=== PATIENT | female | born 2000 | race Caucasian/White ===

== ENCOUNTER 2019-05-07 21:08 | Emergency (ER) | payer OTHER ==
[~2019-05-07] VITALS: Ht 180.3 cm; Wt 70.3 kg
[2019-05-07] MEDS ORDERED: ZOFRAN IV STA (22:02)
[2019-05-07] MEDS ORDERED: MORPHINE SULFATE IV STA (22:02)
--- NOTE | 2019-05-07 22:02 | ER.PDOC ---
General Chief Complaint: Requesting Medical Care Stated Complaint: R SIDE PAIN Time seen by MD: 21:50 Source: patient Exam Limitations: no limitations History of Present Illness Initial Comments Acute onset of R flank pain rad to R groin 3 days. Urinary frequency. No dysuria. No fever or nausea. Timing/Duration: other (3 days) Severity/Quality: moderate Radiation: RLQ Associated Symptoms: other (urinary frequency) Exacerbated by: nothing Relieved By: nothing Allergies: Coded Allergies: No Known Allergies (Unverified , 05/07/19) Vital Signs First Vital Signs Date Time Temp Pulse Resp B/P (MAP) Pulse Ox O2 Delivery O2 Flow Rate FiO2 05/07/19 22:01 98.2 144 18 05/07/19 22:01 99 Room Air Last Vital Signs Date Time Temp Pulse Resp B/P (MAP) Pulse Ox O2 Delivery O2 Flow Rate FiO2 05/07/19 22:01 98.2 05/07/19 22:01 144 18 99 Room Air Constitutional: no symptoms reported EENTM: no symptoms reported Respiratory: no symptoms reported Cardiovascular: no symptoms reported Gastrointestinal: no symptoms reported Genitourinary: frequency, flank pain Musculoskeletal: no symptoms reported Skin: no symptoms reported Psychiatric/Neurological: no symptoms reported Physical Exam General Appearance: WD/WN, Mild Distress HEENT: PERRL/EOMI, Normal ENT Inspection, TMs Normal, Pharynx Normal Neck: Non-Tender, Full Range of Motion, Supple, Normal Inspection Respiratory: chest non-tender, lungs clear, normal breath sounds, no respiratory distress, no accessory muscle use Cardiovascular: Normal Peripheral Pulses, Regular Rate, Rhythm, No Edema, No Gallop, No JVD, No Murmur Gastrointestinal: Normal Bowel Sounds, Non Tender, Soft Back: Normal Inspection, No Vertebral Tenderness, CVA Tenderness (R) Extremities: Normal Range of Motion, Non-Tender, Normal Inspection, No Pedal Edema, No Calf Tenderness, Normal Capillary Refill, Pelvis Stable 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, No Motor/Sensory Deficits, Alert, Normal Mood/Affect, Oriented x 3 Skin: Normal Color, Warm/Dry Lymphatic: No Adenopathy Results/Orders Results/Orders Orders - MADI JOHNSON MD Start Iv (05/07/19 22:02) 0.9 % Sodium Chloride (Ns 1000ml) (05/07/19 22:30) Morphine Sulfate (Morphine Sulfate) (05/07/19 22:02) Ondansetron Hcl (Zofran) (05/07/19 22:02) Cbc With Auto Diff (05/07/19 22:02) Basic Metabolic Panel (05/07/19 22:02) Urinalysis (05/07/19 22:02) 0.9 % Sodium Chloride (Ns 1000ml) (05/07/19 22:10) Ondansetron Hcl (Zofran) (05/07/19 22:10) Urine Culture (05/07/19 21:35) Ceftriaxone Sodium (Rocephin) (05/07/19 23:07) Vital Signs Date Time Temp Pulse Resp B/P (MAP) Pulse Ox O2 Delivery O2 Flow Rate FiO2 05/07/19 22:01 98.2 05/07/19 22:01 98.2 144 18 99 Room Air 05/07/19 22:01 98.2 144 18 Administered Medications Medications (Trade) Dose Ordered Sig/Kylie Route PRN Reason Start Time Stop Time Status Last Admin Dose Admin Morphine Sulfate (Morphine Sulfate) 4 mg OT STAT IV 05/07/19 22:02 05/07/19 22:05 DC 05/07/19 22:31 4 MG Ondansetron HCl (Zofran) 4 mg STAT STAT IV 05/07/19 22:02 05/07/19 22:05 DC 05/07/19 22:31 4 MG Sodium Chloride 0 ml @ 0 mls/hr OT IV 05/07/19 22:30 06/06/19 22:29 05/07/19 22:13 1,200 MLS/HR Laboratory Tests Test 05/07/19 21:35 05/07/19 21:52 Urine Collection Type VOID Urine Color YELLOW (YELLOW) Urine Appearance CLOUDY (CLEAR) H Urine Bilirubin NEGATIVE MG/DL (NEGATIVE) Urine Ketones NEGATIVE (NEGATIVE) Urine Specific [place] 1.010 (1.005-1.035) Urine pH 7 (5.0-6.0) Urine Protein 30 mg/dL (NEGATIVE) H Urine Urobilinogen NORMAL (NEGATIVE) Urine Nitrate NEGATIVE (NEGATIVE) Urine Leukocyte Esterase 100/ul 1+ (NEGATIVE) Urine Blood 150 3+ (NEGATIVE) H Urine RBC 5-10 RBC/HPF (NONE SEEN) H Urine WBC TNTC WBC/HPF (0-2) H Urine Squamous Epithelial Cells MANY #/HPF (FEW) Urine Bacteria RARE (NONE SEEN) Urine Glucose NORMAL (NEGATIVE) White Blood Count 11.7 10^3/uL (4.5-12.5) Red Blood Count 4.79 10^6/uL (4.00-5.20) Hemoglobin 14.2 g/dL (12.4-14.8) Hematocrit 41.8 % (36.0-46.0) Mean Corpuscular Volume 87.3 fL (78-100) Mean Corpuscular Hemoglobin 29.6 pg (26-34) Mean Corpuscular Hemoglobin Concent 34.0 g/dL (33-37) Red Cell Distribution Width 12.2 % (11.5-14.5) Platelet Count 371 10^3/uL (150-400) Mean Platelet Volume 10.1 fL (7.8-11.0) Neutrophils (%) (Auto) 66.8 % (41.0-85.0) Lymphocytes (%) (Auto) 21.6 % (24.0-44.0) L Monocytes (%) (Auto) 7.9 % (5.0-12.0) Neutrophils # (Auto) 7.8 10^3/uL (1.8-8.0) Lymphocytes # (Auto) 2.5 10^3/uL (1.2-5.2) Monocytes # (Auto) 0.9 10^3/uL (0.0-0.4) H Absolute Immature Granulocyte (auto 0.03 10^3 u/L (0-2) Immature Granulocytes % 0.30 % (0.00-0.50) Eosinophils % 2.8 % (0.0-5.0) Basophils % 0.6 % (0.0-0.2) H Basophils # 0.1 10^3/uL (0.0-0.1) Eosinophil Count 0.3 10^3/uL (0.0-0.2) H Sodium Level 141 mmol/L (132-145) Potassium Level 3.8 mmol/L (3.6-5.2) Chloride Level 104.0 mmol/L (96-109) Carbon Dioxide Level 25.6 mmol/L (20.0-32) Glucose Level 92 mg/dL (70-110) Blood Urea Nitrogen 15 mg/dL (7-18) Creatinine 0.88 mg/dL (0.59-1.40) Calcium Level 10.0 mg/dL (8.4-10.5) Anion Gap 15.2 Estimated GFR () 100.2 (>/=60) BUN/Creatinine Ratio 17.0 Course Vitals & review Data Vital Sign - Last 24 Hours 05/07/19 05/07/19 05/07/19 22:01 22:01 22:01 Temp 98.2 98.2 98.2 Pulse 144 144 Resp 18 18 Pulse Ox 99 O2 Delivery Room Air Laboratory Tests Test 05/07/19 21:35 05/07/19 21:52 Urine Collection Type VOID Urine Color YELLOW Urine Appearance CLOUDY Urine Bilirubin NEGATIVE MG/DL Urine Ketones NEGATIVE Urine Specific [place] 1.010 Urine pH 7 Urine Protein 30 mg/dL Urine Urobilinogen NORMAL Urine Nitrate NEGATIVE Urine Leukocyte Esterase 100/ul 1+ Urine Blood 150 3+ Urine RBC 5-10 RBC/HPF Urine WBC TNTC WBC/HPF Urine Squamous Epithelial Cells MANY #/HPF Urine Bacteria RARE Urine Glucose NORMAL White Blood Count 11.7 10^3/uL Red Blood Count 4.79 10^6/uL Hemoglobin 14.2 g/dL Hematocrit 41.8 % Mean Corpuscular Volume 87.3 fL Mean Corpuscular Hemoglobin 29.6 pg Mean Corpuscular Hemoglobin Concent 34.0 g/dL Red Cell Distribution Width 12.2 % Platelet Count 371 10^3/uL Mean Platelet Volume 10.1 fL Neutrophils (%) (Auto) 66.8 % Lymphocytes (%) (Auto) 21.6 % Monocytes (%) (Auto) 7.9 % Neutrophils # (Auto) 7.8 10^3/uL Lymphocytes # (Auto) 2.5 10^3/uL Monocytes # (Auto) 0.9 10^3/uL Absolute Immature Granulocyte (auto 0.03 10^3 u/L Immature Granulocytes % 0.30 % Eosinophils % 2.8 % Basophils % 0.6 % Basophils # 0.1 10^3/uL Eosinophil Count 0.3 10^3/uL Sodium Level 141 mmol/L Potassium Level 3.8 mmol/L Chloride Level 104.0 mmol/L Carbon Dioxide Level 25.6 mmol/L Glucose Level 92 mg/dL Blood Urea Nitrogen 15 mg/dL Creatinine 0.88 mg/dL Calcium Level 10.0 mg/dL Anion Gap 15.2 Estimated GFR () 100.2 BUN/Creatinine Ratio 17.0 Current Medications Medications (Trade) Dose Ordered Sig/Kylie PRN Reason Start Time Stop Time Status Last Admin Sodium Chloride 0 ml @ 0 mls/hr OT 05/07/19 22:30 06/06/19 22:29 05/07/19 22:13 Departure Time of Disposition: 23:11 Disposition: 01 HOME, SELF-CARE Impression: Primary Impression: Pyelonephritis Condition: Stable Referrals: PCP,UNKNOWN (PCP) PRIMARY CARE PROVIDER Additional Instructions: Rx bactrim ds, tylenol3. Fu PCP Duration or Time Spent with Pa: 15 MADI JOHNSON MD May 07, 2019 22:02
[2019-05-07 22:09] LABS: BASOPHIL # 0.1 10^3/uL (0.0-0.1); BASOPHIL % 0.6 % (0.0-0.2); EOSINOPHIL # 0.3 10^3/uL (0.0-0.2); EOSINOPHIL % 2.8 % (0.0-5.0); HEMOGLOBIN 14.2 g/dL (12.4-14.8); LYMPHOCYTES # 2.5 10^3/uL (1.2-5.2); LYMPHOCYTES % 21.6 % (24.0-44.0); MEAN CELL HGB 29.6 pg (26-34); MEAN CORP VOLUME 87.3 fL (78-100); MEAN PLATELET VOLUME 10.1 fL (7.8-11.0); MONOCYTES # 0.9 10^3/uL (0.0-0.4); MONOCYTES % 7.9 % (5.0-12.0); NEUTROPHIL # 7.8 10^3/uL (1.8-8.0); NEUTROPHILS % 66.8 % (41.0-85.0); RED CELL DISTRIBUTION WIDTH 12.2 % (11.5-14.5); WHITE BLOOD CELL 11.7 10^3/uL (4.5-12.5)
[2019-05-07 22:10] LABS: BILIRUBIN,URINE NEGATIVE (NEGATIVE); UROBILINOGEN,URINE NORMAL (NEGATIVE)
[2019-05-07] MEDS ORDERED: NS 1000ML 1,000 ML ONE (22:10)
[2019-05-07] MEDS ORDERED: ZOFRAN ONE (22:10)
[2019-05-07 22:13] LABS: CARBON DIOXIDE 25.6 mmol/L (20.0-32)
[2019-05-07 22:17] LABS: APPEARANCE,URINE CLOUDY (CLEAR); UA COLOR YELLOW (YELLOW)
[2019-05-07] MEDS ORDERED: NS IV SCH (22:30)
[2019-05-07] MEDS ORDERED: ROCEPHIN ONE (23:07)
[2019-05-07] MEDS ORDERED: ROCEPHIN 1,000 MG in NS 100ML 100 ML IV STA (23:08)
--- NOTE | 2019-05-07 23:23 | NUR ---
IV DC'D TIP INTACT, NO BLEEDING
[2019-05-07 23:25] VITALS: BP 142/78
== END 2019-05-07 23:24 | disposition home or self-care (01) ==
LOC: ER 21:08
DX: N12 Tubulo-interstitial nephritis, not specified as acute or chronic (principal); Z79.899 Other long term (current) drug therapy
CPT/HCPCS: 36415; 80048; 81000; 85025; 87077; 87086; 87186; 96374; 96375; 99284; J0696; J2405; J7030; J7050